=== PATIENT | male | born 1970 | race Caucasian/White ===

== ENCOUNTER 2016-07-27 21:23 | Emergency (ER) | payer SELFPAY ==
[2016-07-27 23:03] LABS: BASOPHIL % 0.6 % (0-2); PLATELET COUNT 216 x10^3mcL (130-400); RED CELL DISTRIBUTION WIDTH 12.8 % (11.5-14.5)
[2016-07-27 23:20] LABS: CALCIUM 9.9 mg/dL (8.5-10.1); CARBON DIOXIDE 31.1 mmol/L (21-32); CHLORIDE SERUM 98 mmol/L (98-107); GFR1 > 60 mL/min; GLUCOSE SERUM 370 mg/dL (74-106); POTASSIUM SERUM 4.6 mmol/L (3.5-5.1); SODIUM SERUM 138 mmol/L (136-145)
[2016-07-27 23:24] LABS: ALBUMIN 3.7 g/dL (3.4-5.0); ALKALINE PHOSPHATASE 116 U/L (46-116); ALT/SGPT 25 U/L (16-63); AMYLASE 52 U/L (25-115); AST/SGOT 19 U/L (15-37); BILIRUBIN TOTAL 0.5 mg/dL (0.20-1.00); LIPASE 192 IU/L (73-393); TOTAL PROTEIN, SERUM 7.2 g/dL (6.4-8.2)
[2016-07-28 00:07] VITALS: BP 136/88
== END 2016-07-28 01:30 | disposition home or self-care (01) ==
LOC: ED 21:23
PROVIDERS: Emergency Medicine
DX: R11.10 Vomiting, unspecified (principal); R10.13 Epigastric pain; E78.00 Pure hypercholesterolemia, unspecified; E11.65 Type 2 diabetes mellitus with hyperglycemia; Z79.4 Long term (current) use of insulin
CPT/HCPCS: 82962; G0480; J1815; J3411; J3475; J3490; J7030

== ENCOUNTER 2016-08-15 15:09 | Inpatient (IN) | payer MEDICAID ==
[~2016-08-15] VITALS: Ht 165.1 cm; Wt 71.7 kg
--- NOTE | 2016-08-15 15:22 | NUR ---
PT RETURNED TO LOBBY PENDING ROOM AVAILABILITY. VSS. RESPS E/U. NO S/S OF DISTRESS NOTED. EKG SHOWS NSR AND SIGNED BY
[2016-08-15 16:56] LABS: BASOPHIL % 0.3 % (0-2); PLATELET COUNT 247 x10^3mcL (130-400); RED CELL DISTRIBUTION WIDTH 12.7 % (11.5-14.5)
--- NOTE | 2016-08-15 17:02 | NUR ---
PT IS A 46 YEAR OLD MALE, PRESENTS TO ED WITH C/O MID CHEST PAIN X6 DAYS THAT HAS BEEN CONSTANT AND NON RADIATING WITH A SHARP LIKE QUALITY.PT ALSO REPORTS FRONTAL HEADACHE X3 DAYS THAT HAS BEEN INTERMITTENT WITH A PRESSURE LIKE QUALITY. PT DENIES ANY N/V/D/C. PT DENIES ANY FEVER. BREAHTING IS EVEN AND UNLABORED, NO S/S OF RESPRIATORY DISTRSS. SPEECH IS CLEAR AND APPROPRIATE. PT A/O X4. MSE PERFORMED BY DR. MORIN.
[2016-08-15 17:07] LABS: ALKALINE PHOSPHATASE 170 U/L (46-116); ALT/SGPT 16 U/L (16-63); AST/SGOT 10 U/L (15-37); BILIRUBIN TOTAL 0.2 mg/dL (0.20-1.00); CALCIUM 8.7 mg/dL (8.5-10.1); CARBON DIOXIDE 26.9 mmol/L (21-32); CHLORIDE SERUM 101 mmol/L (98-107); CREATININE SERUM 0.8 mg/dL (0.7-1.3); GFR1 > 60 mL/min; POTASSIUM SERUM 4.3 mmol/L (3.5-5.1); SODIUM SERUM 135 mmol/L (136-145)
[2016-08-15 17:08] LABS: ALBUMIN 2.9 g/dL (3.4-5.0)
[2016-08-15 17:10] LABS: GLUCOSE SERUM 520 mg/dL (74-106)
[2016-08-15] MEDS ORDERED: LANTUS SOLOS100 U/M1 SQ (19:03)
--- NOTE | 2016-08-15 19:14 | NUR ---
REPORT GIVEN TO ANJU Rocha RN, SHE WILL ASSUME CARE PRIMARYT RN.
--- NOTE | 2016-08-15 19:47 | NUR ---
REPORT CALLED TO DONNA ON [facility] FOR ADMISSION OF THIS PT.
--- NOTE | 2016-08-15 19:53 | NUR ---
RECEIVED PT FROM ED VIA [facility], CAME IN DUE TO SOB AND COUGH X6 DAYS. AAOX4. C/O 5/10 HEADACHE, DIZZINESS AND RUNNY NOSE. HAS NON-PRODUCTIVE COUGH, LUNG SOUNDS CTA. C/O 5/10 PRESSURE AND NON-RADIAITING MID CHEST PAIN, SINUS TACHYCARDIA ON THE MONITOR, HR AT 118, STATED PAIN IS WORSE WHEN DEEP BREATHING AND COUGHING. C/O RIGHT ARM NUMBNESS FROM ANTECUBITAL AREA TO HAND. C/O SWELLING ON THE RIGHT HAND, STATED YESTERDAY WAS WORSE. SIDE RAILS UPX2. CALL LIGHT ON REACH. ENDORSED TO PRIMARY NURSE DONNA FOR CONTINUITY OF CARE
[2016-08-15 20:06] VITALS: BP 141/74
[2016-08-15 20:13] VITALS: Ht 165.1 cm; Wt 71.7 kg
--- NOTE | 2016-08-15 20:30 | NUR ---
PT ALERT AND VERBAL IN FRISIAN WITH CLEAR SPEECH. DENIES ANY SOB. NO S/S OF RESPIRATORY DISTRESS NOTED. NOTED WITH MOIST NONPRODUCTIVE COUGH. LUNGS CLEAR BILATERALLY. ON TELE #2, ST. PT C/O PRESSURE LIKE PAIN TO CHEST AND HEADACHE. PRN NORCO 7.5 MG PO GIVEN. IV PATENT AND INTACT TO RIGHT AC. IV NS INFUSING WELL AT 50 ML/HR. NO S/S OF INFECTION NOTED. CALL LIGHT WITHIN REACH. WILL CONTINUE TO MONITOR.
[2016-08-15 21:23] LABS: CHOLESTEROL/HDL RATIO 4.6
[2016-08-15 21:30] LABS: T3 TOTAL 0.8 ng/mL
[2016-08-15 21:32] LABS: FREE T4 1.2 ng/dL (0.76-1.46); FREE THYROXINE INDEX 2.2 ug/dL (1.4-4.5); T4(THYROXINE) 6.2 ug/dL (4.7-13.3)
--- NOTE | 2016-08-15 21:55 | NUR ---
RECEIVED CALL FROM LAB, LACTIC ACID 3.3. DR. HUA UPDATED AND AWARE. AWAITING NEW ORDERS.
[2016-08-15 23:03] VITALS: BP 141/74
[2016-08-16] VITALS (7 sets, daily range): BP systolic 139–162; BP diastolic 78–96
[2016-08-16 00:21] LABS: microscopic required? YES; urine erythrocyte TRACE (NEGATIVE)
--- NOTE | 2016-08-16 00:31 | NUR ---
PT CURRENTLY RESTING IN BED WITH RELAXED FACIAL FEATURES. NO S/S OF RESPIRATORY DISTRESS NOTED. BREATHING EQUAL AND UNLABORED. IV PATENT AND INFUSING WELL. NO ADVERSE REACTIONS FROM IV ROCEPHIN. RECEIVED CALL FROM LAB, LACTIC ACID 3.6. DR. HUA UPDATED AND AWARE. AWAITING NEW ORDERS.
[2016-08-16 00:33] LABS: AMPHETAMINE QUAL UR NONE DETECTED (NEG <=1000)
--- NOTE | 2016-08-16 01:56 | NUR ---
PT'S INITIAL BP BEFORE IV NS 1000 ML BOLUS, 145/80, HR 88, MAP 101. AFTER IV NS 1000 ML BOLUS, NOTED PT HAVING COUGHING EPISODE. O2 SAT 90-96%. BP 162/96, HR 94, MAP 112. PT ALSO C/O SORE THROAT. PRN CEPACOL LOZENGE GIVEN. DR. HUA UPDATED REGARDING PT'S BP, HR, AND COUGHING EPISODE. AWAITING NEW ORDERS.
--- NOTE | 2016-08-16 02:16 | NUR ---
PRN ROBITUSSIN WITH CODEINE 10 ML LIQUID PO GIVEN. SWALLOWED WITHOUT DIFFICULTY. NO S/S OF RESPIRATORY DISTRESS NOTED AT THIS TIME. PT STATES LOZENGE HELPED WITH SORE THROAT AND FEELS BETTER. IV NS INFUSING WELL. CALL LIGHT WITHIN REACH. WILL CONTINUE TO MONITOR.
[2016-08-16 06:06] LABS: BASOPHIL % 0.1 % (0-2); PLATELET COUNT 236 x10^3mcL (130-400); RED CELL DISTRIBUTION WIDTH 12.4 % (11.5-14.5)
--- NOTE | 2016-08-16 06:07 | NUR ---
PT RESTING IN BED WITH EYES CLOSED. SLEPT WELL. EASILY AROUSED WHEN NAME CALLED. ALERT AND VERBAL WITH CLEAR SPEECH. REMAINS ON O2 1L VIA NC FOR COMFORT. DENIES ANY SOB AT THIS TIME. NO S/S OF RESPIRATORY DISTRESS NOTED. DENIES ANY PAIN AT THIS TIME. STATES THROAT FEELS DRY AND LITTLE SORE. PRN CEPACOL LOZENGE GIVEN. IV NS PATENT AND INFUSING WELL AT 150 ML/HR TO RIGHT FA. NO S/S OF DISTRESS NOTED. CALL LIGHT WITHIN REACH. WILL CONTINUE TO MONITOR.
[2016-08-16 06:52] LABS: CALCIUM 8.6 mg/dL (8.5-10.1); CARBON DIOXIDE 24.6 mmol/L (21-32); CHLORIDE SERUM 102 mmol/L (98-107); CREATININE SERUM 0.7 mg/dL (0.7-1.3); GFR1 > 60 mL/min; GLUCOSE SERUM 348 mg/dL (74-106); PHOSPHOROUS 3.4 mg/dL (2.5-4.9); POTASSIUM SERUM 4.2 mmol/L (3.5-5.1); SODIUM SERUM 137 mmol/L (136-145)
--- NOTE | 2016-08-16 07:20 | NUR ---
Received patient awake and alert in bed denies pain at this time, IV intact, tele in place # 2, POC explained. Cont to monitor.
--- NOTE | 2016-08-16 08:40 | NUR ---
PATIENT RESTING IN BED NO COMPLAINTS; DR. COMBS AND TEAM ROUND DISCUSS WITH PATIENT WILL NEED BLOOD SUGAR CONTROL AND ASTHMA IMPROVED
--- NOTE | 2016-08-16 09:31 | NUR ---
Patient resting in bed watching TV no distress noted, due meds given, Robitussin w/ Codeine 10ml given for cough; needs anticipated.
--- NOTE | 2016-08-16 11:31 | NUR ---
Patient resting in bed no complaints, accu-check done bs 264 give 6 units Humulin R SQ; diabetes teaching completed and handouts give to patient in Maltese. Needs anticipated.
--- NOTE | 2016-08-16 14:05 | NUR ---
PATIENT RESTING IN BED WATCHING TV, NO PAIN, DUE MEDS GIVEN. CEPACOL 1 TAB GIVEN PER REQUEST. ENCOURAGE PATIENT TO AMBULATE IN THE [place].
--- NOTE | 2016-08-16 16:42 | NUR ---
PATIENT REMAIN SIT IN THE CHAIR NO COMPLAINT, BS 342 GIVE 12 UNITS OF HUMULIN R SQ. GLUCOTROL 5MG PO. CONT TO MONITOR.
--- NOTE | 2016-08-16 17:59 | NUR ---
PATIENT REMAIN UP IN CHAIR EATING HIS DINNER, REQUEST FOR EXTRA FOODS, RE-INFORCED PATIENT ON DIABETIC DIET. NEEDS ANTICIPATED.
--- NOTE | 2016-08-16 19:54 | NUR ---
PT CURRENTLY RESTING IN BED, NO ACUTE DISTRESS. A/O X4. NO TELE, MED/SURG. DENIES CHEST PAIN. PULSES PALPABLE IN ALL EXTREMITIES, TRACE EDEMA NOTED TO RIGHT HAND. LUNG SOUNDS CTA BILATERALLY, NON-PRODUCTIVE COUGH NOTED, DENIES SOB. BOWEL SOUNDS ACTIVE, LAST BM 08/15/16. VOIDING WELL. AMBULATORY. SKIN INTACT. C/O HEADACHE, PAIN 06/05. WILL MEDICATE PER EMAR. IV PATENT AND INTACT. BED IN LOWEST POSITION, SIDE RAILS UP X2, SCDS IN PLACE, CALL LIGHT WITHIN REACH. WILL CONTINUE TO MONITOR.
--- NOTE | 2016-08-17 00:32 | NUR ---
PT CURRENTLY RESTING IN BED, NO ACUTE DISTRESS. WILL CONTINUE TO MONITOR.
[2016-08-17 05:44] VITALS: BP 118/82
--- NOTE | 2016-08-17 06:10 | NUR ---
PT SLEPT PERIODICALLY THROUGHOUT NIGHT, NO ACUTE DISTRESS. ALL NEEDS MET AND ATTENDED TO. NO SIGNIFICANT CHANGES. IV PATENT AND INTACT. MEDICATED PAIN PER EMAR. BED IN LOWEST POSITION, SIDE RAILS UP X2, SCDS IN PLACE, CALL LIGHT WITHIN REACH. WILL ENDORSE CARE TO ONCOMING NURSE.
[2016-08-17 06:38] LABS: BASOPHIL % 0.1 % (0-2); PLATELET COUNT 278 x10^3mcL (130-400); RED CELL DISTRIBUTION WIDTH 12.4 % (11.5-14.5)
--- NOTE | 2016-08-17 07:05 | NUR ---
BEDSIDE REPORT RECEIVED FROM [facility] SHIFT NURSE AT THIS TIME. PATIENT AWAKE, ALERT, NO SIGNS OF DISTRESS NOTED. ALL SAFETY MEASURES IN PLACE, WILL CONTINUE TO MONITOR.
[2016-08-17 07:24] LABS: CALCIUM 8.5 mg/dL (8.5-10.1); CARBON DIOXIDE 26.6 mmol/L (21-32); CHLORIDE SERUM 103 mmol/L (98-107); CREATININE SERUM 0.6 mg/dL (0.7-1.3); GFR1 > 60 mL/min; GLUCOSE SERUM 223 mg/dL (74-106); MAGNESIUM 2.2 mg/dL (1.8-2.4); PHOSPHOROUS 3.5 mg/dL (2.5-4.9); POTASSIUM SERUM 3.8 mmol/L (3.5-5.1); SODIUM SERUM 138 mmol/L (136-145)
[2016-08-17 07:40] VITALS: BP 123/78
--- NOTE | 2016-08-17 07:45 | NUR ---
PATIENT AWAKE, ALERT, NO SIGNS OF DISTRESS NOTED, AMBULATED IN HALLWAY X2 LAPS, GOOD POSTURE, GAIT STEADY AND BALANCED. DENIES CHEST PAIN, NO DIZZINESS. STATES HE IS HUNGRY, ON ROOM AIR SPO2 97%. IV TO RFA WNL, CALM AND COOPERATIVE WITH CARE, ALL SAFETY MEASURES IN PLACE, WILL CONTINUE TO [facility].
[2016-08-17 09:54] VITALS: BP 125/78
[2016-08-17] MEDS ORDERED: ZIT250 PO (09:57)
[2016-08-17] MEDS ORDERED: FLORASTOR1 CAP PO (09:59)
--- NOTE | 2016-08-17 10:00 | NUR ---
PATIENT AMBULATING IN HALLWAY WITH , GAIT STEADY, BALANCED, NO SIGNS OF DISTRESS NOTED. WILL CONTINUE TO MONITOR.
[2016-08-17] MEDS ORDERED: ZES20 PO (10:03)
[2016-08-17] MEDS ORDERED: LANTUS SOLOS100 U/M1 SQ (10:07)
[2016-08-17] MEDS ORDERED: GLUCOTROL10 MG PO (10:09)
[2016-08-17] MEDS ORDERED: PROVENTIL0.09 MG/A1 INH (10:10)
[2016-08-17] MEDS ORDERED: HUMULIN R100 U/1 M1 SC (10:56)
[2016-08-17] MEDS ORDERED: INSULIN SYRING1 EA10 MC (10:57)
--- NOTE | 2016-08-17 11:20 | NUR ---
Nutrition Note 201-B OCTAVIANO VASQUEZ 46 Y/O M Nutrition Consult: DM Teaching. Thank you for your consult. Dx: Severe Hyperglycemia, Status Asthmaticus PMHx: DM Ht: 65", 5' 5". Wt: 158 lb, 72 kg. BMI: 26.3 kg/m2 (Overweight) Labs: BG 223 H, Cr 0.6 L, WBC 12.6 H, H/H 12.7/38 L; (08/15) ALB 2.9 L, A1C 11.4 H, Lactic Acid 3.6 H Current Diet Order: CCHO-60 gm PO Intakes: (08/16) B: 80%; (08/17) B: 100% Skin: Intact. Gulshan 22. No pressure injuries noted. Pt found with SOB secondary to possible community acquired pneumonia masked by dehydration vs COPD exacerbation, DMOOC with HCS with A1C 11.[address] notes[address] RD met up with pt at bedside. Family at bedside. Pt appears to be in good spirits, reported good appetite, no N/V/D/C, and no abd pain. RD provided nutrition education on DM, discussed portion control, carb counting, exercise, and food options. Handouts and DM class flyer provided. Pt receptive and acknowledged/verbalizes understanding of diet. Review indicates pt is a low risk priority at this time. RD to follow up per nutrition care policy and standards. Please contact RD should nutrition concerns arise earlier than expected follow up date. Pt will be F/U as LOW risk (08/24).
[2016-08-17 11:57] VITALS: BP 125/78
--- NOTE | 2016-08-17 12:18 | NUR ---
PATIENT AWAKE, ALERT, NO SIGNS OF DISTRESS NOTED. RN TONY AT BEDSIDE TO GIVE PATIENT CONTOUR GLUCOMETER. WILL NOTIFY MD OF PRESCRIPTION FOR STRIPS.
[2016-08-17] MEDS ORDERED: LANCETS1 EAC3 MC (12:23)
[2016-08-17] MEDS ORDERED: BLOOD GLUCOSE1 EACH MC (12:23)
--- NOTE | 2016-08-17 12:43 | NUR ---
DR BENITEZ IN TO PROVIDE DISCHARGE EDUCATION AT THIS TIME. AT BEDSIDE, ALL QUESTIONS AND CONCERNS ADDRESSED. WILL FACILITATE DISCHARGE, PATIENT EATING LUNCH.
--- NOTE | 2016-08-17 13:11 | NUR ---
DISCHARGE TEACHING PROVIDED AT THIS TIME. AT BEDSIDE, ESCORTED BY NURSE AID RAFAELA DOWNSTAIRS. ATTENDING ANESTHESIOLOGIST MADE AWARE.
== END 2016-08-17 13:10 | disposition home or self-care (01) | DRG 140 ==
LOC: ED 15:09 → MU 19:13 → DU 19:13 → MU 08-16 16:56
PROVIDERS: Emergency Medicine; ADMIT Family Medicine
DX: J44.1 Chronic obstructive pulmonary disease with (acute) exacerbation (principal); J18.9 Pneumonia, unspecified organism; D68.69 Other thrombophilia; E11.51 Type 2 diabetes mellitus with diabetic peripheral angiopathy without gangrene; E44.0 Moderate protein-calorie malnutrition; E11.65 Type 2 diabetes mellitus with hyperglycemia; E87.1 Hypo-osmolality and hyponatremia; I10 Essential (primary) hypertension; F12.10 Cannabis abuse, uncomplicated; Z79.4 Long term (current) use of insulin; Z68.29 Body mass index [BMI] 29.0-29.9, adult; F17.210 Nicotine dependence, cigarettes, uncomplicated
CPT/HCPCS: 36600; 80307; 82962; 83880; 84439; G0480; J0696; J1815; J2920; J2930; J7030; J7040; J7613; J7620; J7633; J7644; Q0092

== ENCOUNTER 2018-07-06 00:20 | Inpatient (IN) | payer SELFPAY ==
[~2018-07-06] VITALS: Ht 165.1 cm; Wt 62.1 kg
[~2018-07-06 00:20] MED LIST: BLOOD GLUCOSE1 EACH MC; FLORASTOR1 CAP PO; GLUCOTROL10 MG PO; HUMULIN R100 U/1 M1 SC; INSULIN SYRING1 EA10 MC; LANCETS1 EAC3 MC; LANTUS SOLOS100 U/M1 SQ; PROVENTIL0.09 MG/A1 INH; ZES20 PO; ZIT250 PO
[2018-07-06 00:28] VITALS: Ht 165.1 cm; Wt 62.1 kg
[2018-07-06 01:39] LABS: BASOPHIL % 0.2 % (0-2); PLATELET COUNT 200 x10^3mcL (130-400)
[2018-07-06 02:32] LABS: ALBUMIN 3.4 g/dL (3.4-5.0); ALKALINE PHOSPHATASE 213 U/L (46-116); ALT/SGPT 49 U/L (16-63); AST/SGOT 37 U/L (15-37); BILIRUBIN TOTAL 0.37 mg/dL (0.20-1.00); CALCIUM 8.5 mg/dL (8.5-10.1); CARBON DIOXIDE 23.2 mmol/L (21-32); CHLORIDE SERUM 96 mmol/L (98-107); FREE T4 0.82 ng/dL (0.76-1.46); GFR1 > 60 mL/min; LIPASE 729 IU/L (73-393); POTASSIUM SERUM 4.2 mmol/L (3.5-5.1); SODIUM SERUM 129 mmol/L (136-145); TOTAL PROTEIN, SERUM 7.1 g/dL (6.4-8.2)
[2018-07-06 02:42] LABS: GLUCOSE SERUM 655 mg/dL (74-106)
[2018-07-06 03:21] LABS: OSMOLALITY SERUM 300 mOsm/kg (278-298)
[2018-07-06 03:29] LABS: AMPHETAMINE QUAL UR NONE DETECTED (See below)
[2018-07-06 03:36] LABS: UA SPECIFIC GRAVITY <=1.005 (1.005-1.035); microscopic required? YES; urine erythrocyte TRACE (NEGATIVE)
[2018-07-06 06:43] LABS: CHOLESTEROL/HDL RATIO 3.9; MAGNESIUM 2.3 mg/dL (1.8-2.4); PHOSPHOROUS 3.2 mg/dL (2.5-4.9)
[2018-07-06 08:16] VITALS: BP 127/87
[2018-07-06 17:17] VITALS: BP 115/76
[2018-07-06 19:15] VITALS: BP 129/77
[2018-07-07 05:29] VITALS: BP 109/76
[2018-07-07 06:50] LABS: BASOPHIL % 0.4 % (0-2); PLATELET COUNT 173 x10^3mcL (130-400)
[2018-07-07 07:09] LABS: CALCIUM 7.9 mg/dL (8.5-10.1); CARBON DIOXIDE 26.8 mmol/L (21-32); CHLORIDE SERUM 101 mmol/L (98-107); CREATININE SERUM 0.6 mg/dL (0.7-1.3); GFR1 > 60 mL/min; GLUCOSE SERUM 173 mg/dL (74-106); LIPASE 364 IU/L (73-393); POTASSIUM SERUM 3.5 mmol/L (3.5-5.1); SODIUM SERUM 135 mmol/L (136-145)
[2018-07-07 08:48] VITALS: BP 122/80
[2018-07-07 13:23] VITALS: BP 122/80
[2018-07-07 16:24] VITALS: BP 118/73
== END 2018-07-07 18:24 | disposition home or self-care (01) | DRG 438 ==
LOC: ED 00:20 → MU 05:08 → DU 08:13 → MU 07-07 18:24
PROVIDERS: Emergency Medicine; ADMIT Internal Medicine
DX: K85.90 Acute pancreatitis without necrosis or infection, unspecified (principal); N17.0 Acute kidney failure with tubular necrosis; E87.2 Acidosis; E44.1 Mild protein-calorie malnutrition; E11.65 Type 2 diabetes mellitus with hyperglycemia; E78.00 Pure hypercholesterolemia, unspecified; E78.5 Hyperlipidemia, unspecified; Z79.899 Other long term (current) drug therapy; Z79.4 Long term (current) use of insulin; F17.210 Nicotine dependence, cigarettes, uncomplicated; Z91.19 Patient's noncompliance with other medical treatment and regimen; Z68.24 Body mass index [BMI] 24.0-24.9, adult
CPT/HCPCS: 82962; 83880; 84439; 87804; 90658; G0480; J0133; J0696; J1815; J1885; J2060; J2270; J2405; J3370; Q0092

== ENCOUNTER 2018-07-28 23:01 | Inpatient (IN) | payer SELFPAY ==
[~2018-07-28] VITALS: Ht 165.1 cm; Wt 65.3 kg
[2018-07-28 23:13] VITALS: Ht 165.1 cm; Wt 65.3 kg
--- NOTE | 2018-07-29 00:01 | NUR ---
PT CAME TO ED CO WOUND INFECTION TO RIGHT 2ND TOE. PT STS HE STUBBED HIS TOE ON THE WEED EATER. PT STS THE TOES HAS BECOME INCREASINGLY WORSE OVER THE LAST 15 DAYS. UPON ASSESSMENT TOE IS BLACK IN COLOR ALL THE WAY AROUND, ERYTHEMA PRESENT GOING DOWN FOOT, SLIGHT SWELLING TO THE RIGHT FOOT. PT STS HE HAS THROBBING PAIN RATING IT 10/10 NON RADIATING. PT STS HE IS NOT COMPLIANT W/DM MEDICATION. NO S/S OF DISTRESS. RESP E/U. COMFORT MEASURES IMPLEMENTED. AT BEDSIDE. AWAITING MSE. WILL CONTINUE TO MONITOR.
--- NOTE | 2018-07-29 00:07 | NUR ---
XRAY AT BEDSIDE
[2018-07-29 00:27] LABS: BASOPHIL % 0.5 % (0-2); PLATELET COUNT 343 x10^3mcL (130-400); RED CELL DISTRIBUTION WIDTH 12.6 % (11.5-14.5)
--- NOTE | 2018-07-29 00:32 | NUR ---
PT MEDICATED PER MD ORDERS WITH MORPHINE 4 MG IVP, PRE BP 126/76 HR 95.
--- NOTE | 2018-07-29 00:38 | NUR ---
EDUCATED PT ON NEED TO OBTAIN URINE SAMPLE. PT STATES UNABLE TO URINATE AT THIS TIME BUT VERBALIZED UNDERSTANDING OF NEED TO OBTAIN SAMPLE.
[2018-07-29 00:48] LABS: ALKALINE PHOSPHATASE 128 U/L (46-116); ALT/SGPT 19 U/L (16-63); AST/SGOT 10 U/L (15-37); BILIRUBIN TOTAL 0.26 mg/dL (0.20-1.00); CALCIUM 9.4 mg/dL (8.5-10.1); CARBON DIOXIDE 33.6 mmol/L (21-32); CHLORIDE SERUM 95 mmol/L (98-107); GFR1 > 60 mL/min; POTASSIUM SERUM 4.3 mmol/L (3.5-5.1); SODIUM SERUM 134 mmol/L (136-145); TOTAL PROTEIN, SERUM 7.1 g/dL (6.4-8.2)
[2018-07-29 00:53] LABS: GLUCOSE SERUM 474 mg/dL (74-106)
--- NOTE | 2018-07-29 01:10 | NUR ---
LAB AT BEDSIDE FOR BLOOD DRAW
--- NOTE | 2018-07-29 01:17 | NUR ---
EMT JOAQUIN AT BEDSIDE FOR WOUND CARE.
--- NOTE | 2018-07-29 01:25 | NUR ---
PT STATED "I FEEL LIKE I HAVE TO VOMIT". PT GIVEN EMESIS BAG, PT VOMITED ONCE SMALL AMOUNT BUT STILL C/O NAUSEA. DR RUIZ MADE AWARE AND ORDERED 4 MG IVP OF ZOFRAN. WILL CONTINUE TO MONITOR.
--- NOTE | 2018-07-29 01:35 | NUR ---
PT MEDICATED PER MD ORDERS.
--- NOTE | 2018-07-29 02:07 | NUR ---
PT REQUESTING FOOD. DR RUIZ STATED OKAY TO PROVIDE PT WITH FOOD. PT PROVIDED WITH SANDWHICH AND WARM BLANKET FOR COMFORT.
--- NOTE | 2018-07-29 03:20 | NUR ---
PT VISABLE UPSET AND RESTLESS IN BED, PT C/O PAIN AND BEING "REALLY COLD". PT PROVIDED WITH WARM BLANKET FOR COMFORT. DR RUIZ MADE AWARE OF PTS C/0 PAIN. AWAITING ORDERS AT THIS TIME, WILL CONTINUE TO MONITOR.
--- NOTE | 2018-07-29 03:25 | NUR ---
JOAQUIN HAYES REMOVED BANDAGE FROM R TOES AT THIS TIME TO ASSIST IN PAIN MANAGEMENT AT THIS TIME, DR RUIZ MADE AWARE. WILL CONTINUE TO MONITOR.
--- NOTE | 2018-07-29 03:35 | NUR ---
PT MEDICATED PER MD ORDERS. XRAY AT BEDSIDE. WILL CONTINUE TO MONITOR.
--- NOTE | 2018-07-29 03:50 | NUR ---
PT STILL UNABLE TO PROVIDE URINE SAMPLE AT THIS TIME. PER DR JOSEPH BOYLE TO SEND PT UP TO [facility] WITHOUT OBTAINING URINE SAMPLE.
--- NOTE | 2018-07-29 03:53 | NUR ---
REPORT GIVEN TO TANIA COTTON EXT [id number]
--- NOTE | 2018-07-29 04:00 | NUR ---
PT TRANSFERED TO [facility] BED 204B IN NAD AT THIS TIME ACCOMPANIED BY EMT JOAQUIN. BREATHING EVEN AND UNLABORED. PT A&0X4, SPEAKING FULL CLEAR SENTENCES. PT VERBALIZED UNDERSTANDING OF PLAN OF CARE. PT TRANSFERED VIA GURNEY. FAMILY MEMBER ACCOMPANIED PT IN TRANSFER.
--- NOTE | 2018-07-29 04:02 | NUR ---
PATIENT ARRIVED ONTO THE UNIT VIA GUERNEY ACCOMPANIED BY ED STAFF AND SIGNIFICANT OTHER. BELONGINGS AT BEDSIDE. CC: RIGHT SECOND TOE FOOT INFECTION WORSENING X2 WEEKS. DX WITH DIABETIC FOOT ULCER AND OSTEOMYELITIS. MORPHINE GIVEN IN THE ED. PATIENT REPORTS PAIN TO HIS RIGHT ROOT IS 5/10 AND TOLERABLE AT THIS TIME. 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 PATIENT DID NOT WANT IT WRAPPED DUE TO THE PAIN. SURROUNDING ERYTHEMA NOTED TO THE RIGTH FOOT WOUND CX COLLECTED. FOUL ODOR NOTED. A/OX4. BREATHING EVEN ON ROOM AIR. NO SOB OR RESP DISTRESS NOTED. MED SURG PATIENT. DENIES CHEST PAIN. IV TO THE LFA, 20G INFUSING WELL. PATENT AND INTACT. NO REDNESS OR SWELLING NOTED. C/O NAUSEA. ED REPORTED PATIENT HAD EMESIS X1 AND ZOFRAN WAS GIVEN. EMESIS BAG PROVIDED TO THE PATIENT. ORIENTED PATIENT TO THE ROOM AND CALL LIGHT. INSTRUCTED PATIENT TO CALL FOR ASSISTANCE. ABLE TO MAKE NEEDS KNOWN. COMFORT AND SAFETY MEASURES MAINTAINED. SIDE RAILS UP X2. BED IS LOCKED AND IN THE LOWEST POSITION. PATIENT WAS TEARFUL. WHEN ASKED WHAT WAS WRONG, PATIENT STOPPED CRYING AND SAID "NOTHING IS WRONG". WILL CONTINUE TO MONITOR.
[2018-07-29 04:30] LABS: MAGNESIUM 2.1 mg/dL (1.8-2.4); PHOSPHOROUS 4.3 mg/dL (2.5-4.9)
[2018-07-29 04:33] LABS: CHOLESTEROL/HDL RATIO 3.7
[2018-07-29 04:36] LABS: T3 TOTAL 0.84 ng/mL
[2018-07-29 04:48] VITALS: BP 139/92
[2018-07-29 04:49] LABS: FREE T4 1.1 ng/dL (0.76-1.46); FREE THYROXINE INDEX 2.9 ug/dL (1.4-4.5); T4(THYROXINE) 7.7 ug/dL (4.7-13.3)
--- NOTE | 2018-07-29 06:45 | NUR ---
NO SIGNIFICANT CHANGES NOTED. WILL ENDORSE CARE TO DAY SHIFT RN
[2018-07-29 07:09] VITALS: BP 140/87
--- NOTE | 2018-07-29 07:39 | NUR ---
REPORT RECEIVED. PATIENT SEEN ASLEEP WITH RR- 16 UNLABORED. NOT IN ANY DISTRESS. IVF NS AT 100CC/HR TO LFA INFUSING VIA PUMP. SITE NO SWELLING OR ERYTHEMA. NPO FOR 1330 PLANNED SURGERTY. REPORT VIVEN TO YURY MONET IN OR. VISITOR ASLEEP AT BEDSIDE. CALL CEBALLOS WITHIN REACH. BED LOW AND LOCKED.
--- NOTE | 2018-07-29 11:42 | NUR ---
1. Progress to CCHO diet when medically appropriate. 2.Recommend Kerwin BID to support wound healing. 3.Diabetes Diet education provided
--- NOTE | 2018-07-29 11:42 | NUR ---
Initial Nutrition Assessment- /B OCTAVIANO VASQUEZ HR Dx: Diabetic foot infection, osteomyelitis PMHx: DM, HLD PSHx: right eyelid benign tumor resection Labs: (07/29) NA 134L, BG 474H, A1C 11.4 Meds: D50, Humulin, lactinex, NS, Zofran Diet: NPO (podiatry evaluation) PO Intake: Pt is NPO Ht: 165.1cm (65") Wt: 65.3 kg (144#) BMI: 24 kg/m2 IBW: 136# (62 kg) %IBW: 106 UBW: Pt does not remember Age: 48/M Food Allergies: NKFA Skin: R great toe dryness and L Foot Gulshan: 21 Edema: none GI: last BM: 07/29 (per pt) Per H&P, Pt is a 48 year old male with PMH of DM and HLD presents with right 2nd toe pain for 15 days. Patient states it started after a weed erin hit his toe. Patient reports not taking care of it and it got worst. He describes the pain as pressure, constant and non-radiating. He rates the pain as 9/10. Patient reports yellow drainage coming from his toe. He states he has been taking penicillin from [place] for a week. RDN visit (07/29): pt was awake with a family member at bedside. Pt said that he does not have any N/V D/C at this time, has 'good' appetite. FNS received wound care consult for "RT 2nd toe diabetic foot infection" on 07/29/18. Paged Dr. Hamm and discussed recommendations. Problem with: N: no V: no D: no C: no Problems with: Chewing/Swallowing: no Current appetite: good Recent wt change: unable to access as pt does not recall past weight Vitamin/Supplement use: none Special diet at home: Regular Physical activity: unable to access Education: Diabetes diet education was provided using [facility] handout on 'type 2 Diabetes Nutrition Therapy'. Topics discussed included label reading, portion control and types of carbohydrates. Pt verbalized understanding and did not have any questions at this time. Estimated Nutritional Needs Based on actual body weight 65 kg Energy: 2741-1918 kcal/d (30-35 kcal/kg-wound) Protein: 65-78 g/d (1.0-1.2 g/kg)- wound and preservation of lean body mass Fluid: 5312-3793 ml/d (1 ml/kcal-fluid balance) or per doctor Nutrition Diagnosis 1. Increased nutrient needs related to metabolic demands as evidenced by infected wound. 2. Altered nutrition related lab values related to endocrine dysfunction as evidenced by BG 474, A1C 11.4 Intervention 1. Progress to CCHO diet when medically appropriate. 2.Recommend Kerwin BID to support wound healing. 3.Diabetes Diet education provided Monitor/Evaluate Goal: PO intake at least 75% of estimated needs Monitor: PO intake, Labs, GI function F/U in 3-5 days as moderate risk 08/01-08/03
--- NOTE | 2018-07-29 11:58 | NUR ---
SPOKE WITH TOYN RN AWAKE OVERNIGHT MONITOR. PER TONY PT NEEDS GLUCOMETER, LANCETS, AND TEST STRIPS ON DISCHARGE.
--- NOTE | 2018-07-29 13:00 | NUR ---
SURGERY POSTPONED FOR WEDNESDAY. DIET RESUMED. WELL TOLERATED. NOT IN ANY DISTRESS. CALL LIGHT WITHIN REACH. BED LOW AND LOCKED.
--- NOTE | 2018-07-29 13:38 | NUR ---
Discount pharmacy card and list to low cost medical clinics given to patient by Najma.
[2018-07-29 15:51] VITALS: BP 139/80
--- NOTE | 2018-07-29 16:11 | NUR ---
PT. SEEN BY DR. MITTAL THIS MORNING AND PLAN FOR AMPUTATION PROCEDURE ON 08/01/2018. WILL KEEP RIGHT 2ND TOE WOUND DRY AND CLEAN.
[2018-07-29 18:06] LABS: microscopic required? NO
[2018-07-29 18:46] LABS: urine erythrocyte NEGATIVE (NEGATIVE)
--- NOTE | 2018-07-29 19:09 | NUR ---
BEDSIDE REPORT GIVEN TO YURY CULP. PATIENT RESTING IN BED. NOT IN ANY DISTRESS. CALL LIGHT WITHIN REACH. BED LOW AND LOCKED.
--- NOTE | 2018-07-29 19:10 | NUR ---
RECEIVED PT IN COMFORTABLY RESTING WITH FAMILY AT BEDSIDE.AAOX4,TURKISH SPEAKING. NO ACUTE RESPIRATORY DISTRESS NOTED. DENIES ANY PAIN AT THIS TIME.IV SITE PATENT AND INTACT. WOUND TO RIGHT FT TO 2ND TOE. LEFT TOE/ LEFT FT SCAB, WINDOW DRAPER.BED IN LOWEST POSITION,CALL LIGHT WITHIN REACH. WILL CONTINUE TO MONITOR.
[2018-07-29 21:40] VITALS: BP 137/85
--- NOTE | 2018-07-30 05:12 | NUR ---
PT REFUSED LAB . DR PHAN MADE AWARE.
--- NOTE | 2018-07-30 05:18 | NUR ---
PT AWAKE,ALERT. NO SOB NOTED. C/O ANDREWS BUT DOESN'T WANT TO TAKE MEDICINE.REFUSED LAB DRAW ALSO.BED IN LOWEST POSITION,CALL LIGHT WITHIN REACH.WILL CONTINUE TO MONITOR.
--- NOTE | 2018-07-30 05:53 | NUR ---
PT REFUSED INSULIN.DR PHAN MADE AWARE.
--- NOTE | 2018-07-30 06:44 | NUR ---
PT REFUSED GLUCOTROL AND V/S. DR PHAN MADE AWARE.
--- NOTE | 2018-07-30 07:33 | NUR ---
CARE ENDORSED TO DAY NURSE
--- NOTE | 2018-07-30 08:00 | NUR ---
PT IS OX4; ROMANSH SPEAING; FLIGHT CREW TIME CLERK REQUIRED FOR ASSESSMENT; NO SOB AT RM AIR; DENIES PAIN THAT REQUIRE PAIN MED THIS TIME; IVF NSS AT 100 ML/HR INFUSING; LFA SITE PATENT AND WITHOUT INFILTRATION; RT FT IS COVERED WITH KERLIX AND SHARMAINE BANDAGE; FOUL SMELL NOTED IN THE ROOM DESPITE DSG INTACT.
--- NOTE | 2018-07-30 08:40 | NUR ---
DR. MITTAL OBTAINED CONSENT FOR I&D OF RT FOOT FROM PT WITH HELP OF TEL RN TRANSPORT.
[2018-07-30 09:00] VITALS: BP 105/81
--- NOTE | 2018-07-30 09:00 | NUR ---
PHOTO OF THE RT FOOT TAKEN AFTER I&D AT THE BEDSIDE; PT REPORTS DULL HEADACHE AND WAS GIVEN TYLENOL PO PRN ORDERED.
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
--- NOTE | 2018-07-30 14:00 | NUR ---
CALLED LAB FOR PENDING TESTS FROM 0500 THAT PT REFUSED FOR BLOOD DRAW; PT IS COOPERATIVE AND AGREAABLE TO BLD DRAW.
[2018-07-30 14:21] LABS: BASOPHIL % 0.6 % (0-2); PLATELET COUNT 312 x10^3mcL (130-400); RED CELL DISTRIBUTION WIDTH 12.2 % (11.5-14.5)
[2018-07-30 14:45] LABS: CALCIUM 8.3 mg/dL (8.5-10.1); CARBON DIOXIDE 31.5 mmol/L (21-32); CHLORIDE SERUM 97 mmol/L (98-107); CREATININE SERUM 0.9 mg/dL (0.7-1.3); GFR1 > 60 mL/min; GLUCOSE SERUM 219 mg/dL (74-106); MAGNESIUM 1.9 mg/dL (1.8-2.4); PHOSPHOROUS 3.4 mg/dL (2.5-4.9); POTASSIUM SERUM 3.8 mmol/L (3.5-5.1); SODIUM SERUM 134 mmol/L (136-145)
--- NOTE | 2018-07-30 15:00 | NUR ---
VANCO TROUGH IS 18.3 AND PHARMACY IS MADE AWARE.
[2018-07-30 17:38] VITALS: BP 136/94
--- NOTE | 2018-07-30 19:01 | NUR ---
PT HAS BEEN CALM AND COOPERATIVE FOR THE REST OF THE SHIFT. NO NEW COMPLAINTS OR CHANGES IN STATUS. SITTER IN THE ROOM. WILL CONTINUE TO MONITOR STATUS.
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
[2018-07-30 20:45] VITALS: BP 138/67
[2018-07-31 05:42] VITALS: BP 138/84
--- NOTE | 2018-07-31 06:02 | NUR ---
NO SIGNIFICANT CHANGES TO REPORT, PT COMPLIED WITH NURSING CARE THROUGHOUT MOST OF THE SHIFT. SITTER REMAINS AT BEDSIDE TO ENSURE SAFETY. NO ACUTE DISTRESS OBSERVED AT THIS TIME, PT LAYING IN BED, BREATHING EVEN AND UNLABORED, AROUSABLE TO VERBAL STIMULI. COMFORT AND SAFETY MEASURES MAINTAINED. ALL NEEDS ASSESSED AND ATTENDED TO. CALL LIGHT WITHIN REACH. WILL CONTINUE TO MONITOR AND ENDORSE CARE TO DAY SHIFT NURSE
[2018-07-31 06:34] LABS: CALCIUM 8.8 mg/dL (8.5-10.1); CARBON DIOXIDE 32.1 mmol/L (21-32); CHLORIDE SERUM 99 mmol/L (98-107); CREATININE SERUM 0.8 mg/dL (0.7-1.3); GFR1 > 60 mL/min; GLUCOSE SERUM 223 mg/dL (74-106); MAGNESIUM 2.2 mg/dL (1.8-2.4); PHOSPHOROUS 3.4 mg/dL (2.5-4.9); POTASSIUM SERUM 4.2 mmol/L (3.5-5.1); SODIUM SERUM 136 mmol/L (136-145)
[2018-07-31 07:27] LABS: BASOPHIL % 0.2 % (0-2); PLATELET COUNT 312 x10^3mcL (130-400); RED CELL DISTRIBUTION WIDTH 12.4 % (11.5-14.5)
--- NOTE | 2018-07-31 07:40 | NUR ---
RECEIVED PT SITTING UP IN BED. NO ACUTE DISTRESS. DRESSING TO R FOOT C/D/I, ELEVATED WITH PILLOW. NO C/O PAIN. IVF INFUSING, NO REDNESS OR SWELLING NOTED. 1:1 SITTER AT BEDSIDE. PT REPORTS SUICIDAL IDEATION WITH PLAN TO SHOOT HIMSELF WITH A PISTOL WHEN HE GETS HOME. SAFETY PRECAUTIONS IN PLACE. BED IN LOW POSITION, CALL LIGHT WITHIN REACH. WILL CONTINUE TO MONITOR.
[2018-07-31 08:21] VITALS: BP 125/85
--- NOTE | 2018-07-31 11:31 | NUR ---
DRESSING TO RIGHT FOOT CHANGED BY IT DESKTOP SUPPORT TECHNICIAN DR. MITTAL.
--- NOTE | 2018-07-31 14:41 | NUR ---
PT RESTING IN BED. NO ACUTE DISTRESS. DENIES PAIN AT THIS TIME. 1:1 SITTER AT BEDSIDE. VISITORS AT BEDSIDE. IVF INFUSING, NO REDNESS OR SWELLING. CALL LIGHT WITHIN REACH. WILL CONTINUE TO MONITOR.
[2018-07-31 17:26] VITALS: BP 108/65
--- NOTE | 2018-07-31 18:20 | NUR ---
PT IN NO ACUTE DISTRESS. RESTING IN BED. AAOX4. BREATHING EVEN AND UNLABORED ON RA. RIGHT FOOT DRESSING C/D/I, ELEVATED WITH PILLOW. DENIES PAIN. IVF INFUSING, NO REDNESS OR SWELLING. PT INFORMED OF NPO STATUS FOR PROCEDURE TOMORROW IN AM. BED IN LOW POSITION, CALL LIGHT WITHIN REACH. WILL ENDORSE TO ONCOMING SHIFT.
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
[2018-07-31 20:27] VITALS: BP 132/88
[2018-08-01 05:46] VITALS: BP 126/89
--- NOTE | 2018-08-01 05:55 | NUR ---
DR. WILLIS AT BEDSIDE TO SEE PT
--- NOTE | 2018-08-01 06:18 | NUR ---
PT NPO SINCE 2329 LAST NIGHT. AWARE OF SURGERY SCHEDULED TODAY. CHG WIPES DONE. CONSENT TO SURGERY SIGNED BY PT AND IN CHART. CHECKLIST DONE AND IN CHART. NO SIGNIFICANT CHANGES TO REPORT, PT COMPLIED WITH NURSING CARE THROUGHOUT THE SHIFT WITH NO ACUTE EVENTS OVERNIGHT. NO ACUTE DISTRESS NOTED AT THIS TIME, PT LAYING IN BED, BREATHING EVEN AND UNLABORED, AROUSABLE TO VERBAL STIMULI. SITTER REMAINS AT BEDSIDE TO ENSURE SAFETY. COMFORT AND SAFETY MEASURES MAINTAINED. ALL NEEDS ASSESSED AND ATTENDED TO. CALL LIGHT WITHIN REACH. WILL CONTINUE TO MONITOR AND ENDORSE CARE TO DAY SHIFT NURSE
[2018-08-01 06:42] LABS: CALCIUM 8.6 mg/dL (8.5-10.1); CARBON DIOXIDE 30.4 mmol/L (21-32); CHLORIDE SERUM 100 mmol/L (98-107); CREATININE SERUM 0.9 mg/dL (0.7-1.3); GFR1 > 60 mL/min; GLUCOSE SERUM 310 mg/dL (74-106); MAGNESIUM 2.1 mg/dL (1.8-2.4); PHOSPHOROUS 3.2 mg/dL (2.5-4.9); POTASSIUM SERUM 4.2 mmol/L (3.5-5.1); SODIUM SERUM 136 mmol/L (136-145)
--- NOTE | 2018-08-01 06:46 | NUR ---
REPORT GIVEN TO YURY LI FROM .. ALL QUESTIONS AND CONCERNS ADDRESSED.
[2018-08-01 06:50] LABS: BASOPHIL % 0.4 % (0-2); PLATELET COUNT 331 x10^3mcL (130-400); RED CELL DISTRIBUTION WIDTH 12.6 % (11.5-14.5)
--- NOTE | 2018-08-01 06:50 | NUR ---
PT TAKEN DOWN TO O.R. AT THIS TIME. IV TO LFA S/L. NO ACUTE DISTRESS OBSERVED.
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
[2018-08-01 09:16] VITALS: BP 114/71
--- NOTE | 2018-08-01 09:40 | NUR ---
PATIENT APPEARED AGITATED AND WANTED TO LEAVE, PATIENT PULLED OUT IV TO LFA. PATIENT WAS ABLE TO CALM DOWN ONCE HE WAS GIVEN FOOD, PATIENT ALLOWED US TO PLACE A NEW IV TO RFA 20G. CALL LIGHT WITHIN REACH, BED IN LOW POSITION, WILL CONTINUE TO MONITOR PATIENT. SITTER AT BEDSIDE FOR SAFETY PRECAUTION.
--- NOTE | 2018-08-01 12:40 | NUR ---
DR LAGUERRE AWARE PATIENT WANTED TO LEAVE AMA, DR LAGUERRE SPOKE WITH THE PATIENT ABOUT PLAN OF CARE, PATIENT AGREED TO STAYING. WILL CONTINUE TO MONITOR THE PATIENT.
[2018-08-01 17:35] VITALS: BP 126/75
--- NOTE | 2018-08-01 18:30 | NUR ---
PATIENT WAS C/O MODERATE PAIN TO RLE, HELPED REPOSITION PATIENT, AND MEDICATED PATIENT WITH NORCO PER PROTOCOL(SEE EMAR). CALL LIGHT WITHIN REACH, BED IN LOW POSITION, WILL CONTINUE TO MONITOR.
--- NOTE | 2018-08-01 19:05 | NUR ---
NO ACUTES CHANGES THROUGH OUT SHIFT, PATIENT IS STABLE. PATIENT DENIES PAIN AT THIS TIME. DRESSING TO RLE CDI. IV TO RFA CDI, NO S/S OF INFILTRATION. CALL LIGHT WITHIN REACH, BED IN LOW POSITION. ENDORSED REPORT TO JOSEFINA.
--- NOTE | 2018-08-01 19:25 | NUR ---
RECEIVED PT RESTING IN BED, FAMILY AT BEDSIDE. AOX4, DENIES ANDREWS/DIZZINESS. MEDSURG PT, DENIES CP. PT S/P RT FOOT PARTIAL 2ND RAY AMPUTATION, DSG IN PLACE CDI. PT DENIES PAIN AT THIS TIME. PT HAS 1+ EDEMA RLE, SCDS IN PLACE. PT CTA ON RA, DENIES SOB. ABD SOFT, ROUND, DENIES ABD PAIN. PT DENIES N/V/D. PT VOIDS BRP, DENIES DYSURIA. GENERALIZED WEAKNESS ON NWB RT FOOT. WILL REQUEST CRUTCH FOR SAFE GAIT TRAINING. PT HAS DRY FLAKY SKIN NOTED TO LEFT LATERAL ASPECT OF THE LEFT FOOT. 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 DENIES PAIN. PT REPORTS PAIN UNDER CONTROL AT THIS TIME. IV SITE TO RFA, NS @ 100ML/HR. NO REDNESS, SWELLING OR PAIN NOTED. PT ON ANTIBIOTICS. ALL COMFORT AND SAFETY MEASURES PROVIDED FOR, CALL LIGHT WITHIN REACH, BED IN LOWEST POSITION, WILL CONTINUE TO MONITOR.
[2018-08-01 20:56] VITALS: BP 132/82
--- NOTE | 2018-08-02 00:54 | NUR ---
MEDICATED PT WITH ATIVAN PO FOR ANXIETY. PT REPORTS FEELING SCARED BECAUSE HE STATES "FEELING EVIL SPIRITS" IN THE ROOM. EDUCATED PT HE IS SAFE AND HIS IS AT BEDSIDE TO PROVIDE COMFORT. PT VERBALIZES UNDERSTANDING. ALL COMFORT AND SAFETY MEASURES PROVIDED FOR, CALL LIGHT WITHIN REACH, BED IN LOWEST POSITION, WILL CONTINUE TO MONITOR.
--- NOTE | 2018-08-02 05:05 | NUR ---
PT RESTED IN INTERVALS DURING SHIFT, NO ACUTE CHANGES OCCURRING OVERNIGHT. PT REMAINS AFEBRILE DURING SHIFT, PT MEDICATED WITH TYLENOL FOR BREAKTHROUGH PAIN. PT DSG TO RT FOOT REMAINS CDI, IV SITE REMAINS PATENT TO RFA NS @ 100ML/HR. NO REDNESS, SWELLING OR PAIN NOTED. ALL COMFORT AND SAFETY MEASURES PROVIDED FOR, CALL LIGHT WITHIN REACH, BED IN LOWEST POSITION, WILL CONTINUE TO MONITOR.
[2018-08-02 05:45] VITALS: BP 141/87
[2018-08-02 06:38] LABS: BASOPHIL % 0.3 % (0-2); PLATELET COUNT 304 x10^3mcL (130-400); RED CELL DISTRIBUTION WIDTH 12.4 % (11.5-14.5)
[2018-08-02 06:47] LABS: CALCIUM 8.3 mg/dL (8.5-10.1); CARBON DIOXIDE 27.4 mmol/L (21-32); CHLORIDE SERUM 100 mmol/L (98-107); CREATININE SERUM 0.8 mg/dL (0.7-1.3); GFR1 > 60 mL/min; GLUCOSE SERUM 290 mg/dL (74-106); PHOSPHOROUS 3.2 mg/dL (2.5-4.9); SODIUM SERUM 136 mmol/L (136-145)
--- NOTE | 2018-08-02 07:25 | NUR ---
RECEIVED BEDSIDE REPORT FROM IRRIGATION DISTRICT MANAGER NURSE AT THIS TIME. PATIENT RESTING COMFORTABLY IN BED. FAMILY MEMBER AT BEDSIDE. NO APPARENT DISTRESS OR DISCOMFORT NOTED. BREATHING EVEN AND UNLABORED. NO RESPIRATORY DISTRESS NOTED. PATIENT DENIES SHORTNESS OF BREATH. PATIENT DENIES CHEST PAIN AT THIS TIME. IV PATENT AND INTACT INFUSING AT 100 ML/HR. ALL QUESTIONS AND CONCERNS ADDRESSED. ALL NEEDS ATTENDED TO. WILL CONTINUE TO MONITOR
--- NOTE | 2018-08-02 07:37 | NUR ---
ENDORSED ALL CARE TO DAYSHIFT NURSE, ALL QUESTIONS AND CONCERNS ADDRESSED, ALL COMFORT AND SAFETY MEASURES PROVIDED FOR, CALL LIGHT WITHIN REACH. BED IN LOWEST POSITION.
[2018-08-02 09:36] VITALS: BP 141/75
--- NOTE | 2018-08-02 10:18 | NUR ---
ALL MORNING MEDICATIONS ADMINISTERED. PATIENT TOLERATED MEDICATION WELL. NO ADVERSE EFFECTS NOTED. ALL NEEDS ATTENDED TO. WILL CONTINUE TO MONITOR
--- NOTE | 2018-08-02 11:44 | NUR ---
Follow-up Nutrition Assessment- 208/A OCTAVIANO VASQUEZ HR Dx: Diabetic foot infection, osteomyelitis Labs: BG 290H, A1C 11.4H Meds: D50, Glucotrol, humulin, lactinex, norco, zofran Diet: CCHO PO intake: (08/02) breakfast 100% Weights: (07/29): 65 kg Skin: s/p partial 2nd toe amputation to right foot Gulshan: 20 Edema: none Last BM: 07/31 RDN Visit(08/02): Pt is S/P right toe amputation. Per bed huddles, pt is to be D/C'D today or tomorrow. Pt has good appetite and ate all of his breakfast this morning. No N/V/D at this time. Previous RDN visit (07/29): Diabetes diet education was provided using [facility] handout on 'type 2 Diabetes Nutrition Therapy'. Topics discussed included label reading, portion control and types of carbohydrates. Estimated Nutritional Needs Based on actual body weight 65 kg Energy:8878-2929 kcal/d (30-35 kcal/kg-wound) Protein:65-78 g/d (1.0-1.2 g/kg)- wound and preservation of lean body mass Fluid: 4838-9992 ml/d (1 ml/kcal-fluid balance) or per doctor Nutrition Diagnosis 1.Increased nutrient needs related to metabolic demands as evidenced by infected wound. (ongoing-improving) 2.Altered nutrition related lab values related to endocrine dysfunction as evidenced by BG 474, A1C 11.4 (ongoing-improving) Intervention 1. Continue CCHO diet. Monitor/Evaluate Previous goal: progress to CCHO (met) Goal: PO intake at least 75% of estimated needs Monitor: PO intake, Labs, GI function F/U in 7 days as low risk 08/09
--- NOTE | 2018-08-02 11:44 | NUR ---
1. Continue CCHO diet.
--- NOTE | 2018-08-02 12:14 | NUR ---
PAGED DR LAGUERRE THAT PATIENT REFUSING INSULIN COVERAGE AT THIS TIME. WILL CONTINUE TO MONITOR PATIENT
--- NOTE | 2018-08-02 16:33 | NUR ---
PATIENT REFUSING BLOOD SUGAR CHECK AT THIS TIME.DR HORTON AWARE AND STATES TO CHART PATIENT REFUSING. DR HORTON AT BEDSIDE TO REVIEW POC WITH PATIENT. PATIENT EXPRESSES FEELINGS OF NOT WANTING TO STAY IN THE HOSPITAL AND HE JUST WANTS TO GO HOME. DR HORTON EXPLAINS TO PATIENT TO STAY ONE MORE NIGHT TO BE ABLE TO WORK WITH PHYSICAL THERAPY AND WORK WITH CRUTCHES. PATIENT AND VERBALIZE UNDERSTANDING. ALL QUESTIONS AND CONCERNS ADDRESSED. ALL NEEDS ATTENDED TO. WILL CONTINUE TO MONITOR
[2018-08-02 17:44] VITALS: BP 141/88
--- NOTE | 2018-08-02 18:52 | NUR ---
PATIENT RESTING COMFORTABLY IN BED AT THIS TIME. NO APPARENT DISTRESS OR DISCOMFORT NOTED. FAMILY MEMBER AT BEDSIDE. IV PATENT AND INTACT. ALL QUESTIONS AND CONCERNS ADDRESSED. SAFETY PRECAUTIONS MAINTAINED. ALL NEEDS ATTENDED TO. WILL ENDORSE ALL CARE TO HORSE IDENTIFIER NURSE
--- NOTE | 2018-08-02 19:40 | NUR ---
RECEIVED REPORT FROM DAY SHIFT RN. PT RESTING IN BED. AA&O X4. NO SOB ON ROOM AIR. NO C/O PAIN AT THIS TIME. IV TO RFA, NS INFUSING. DRESSING TO RIGHT FOOT, CDI. SAFETY MEASURES IN PLACE. BED IN LOWEST POSITION. SIDE RAILS UP X2. DEMONSTRATED HOW TO USE THE CALL LIGHT FOR ASSISTANCE. CALL LIGHT WITHIN REACH. FAMILY AT BEDSIDE.
--- NOTE | 2018-08-02 20:31 | NUR ---
PT C/O RIGHT FOOT THROBBING PAIN 10/, MEDICATED WITH NORCO.
[2018-08-02 21:08] VITALS: BP 138/88
--- NOTE | 2018-08-03 01:42 | NUR ---
C/O RIGHT FOOT THROBBING PAIN 12/06. MEDICATED WITH NORCO.
--- NOTE | 2018-08-03 02:40 | NUR ---
PT RESTING WITH EYES CLOSED. NO FACIAL GRIMACING. NO DISTRESS NOTED. CALL LIGHT WITHIN REACH. AT BEDSIDE.
--- NOTE | 2018-08-03 05:27 | NUR ---
PT SLEPT IN INTERVALS DURING SHIFT. NO ACUTE CHANGES DURING SHIFT. DRESSING TO RIGHT FOOT REMAINS CDI. SAFETY MEASURES MAINTAINED. ALL NEEDS ATTENDED TO. CALL LIGHT WITHIN REACH. AT BEDSIDE. WILL ENDORSE CONTINUITY OF CARE TO ONCOMING RN.
[2018-08-03 05:52] VITALS: BP 131/77
[2018-08-03 06:27] LABS: CALCIUM 8.5 mg/dL (8.5-10.1); CARBON DIOXIDE 28.5 mmol/L (21-32); CHLORIDE SERUM 101 mmol/L (98-107); CREATININE SERUM 0.9 mg/dL (0.7-1.3); GFR1 > 60 mL/min; GLUCOSE SERUM 416 mg/dL (74-106); MAGNESIUM 1.9 mg/dL (1.8-2.4); PHOSPHOROUS 3.8 mg/dL (2.5-4.9); SODIUM SERUM 137 mmol/L (136-145)
--- NOTE | 2018-08-03 07:15 | NUR ---
RECEIVED PATIENT AWAKE/ALERT IN BED, NO C/O PAIN. PATIENT WANT TO GO HOME INFORM PATIENT WILL WAIT FOR DOCTOR TO ROUND. IV TO RFA INTACT AND INFUSING WELL. POC EXPLAINED. CALL LIGHT IN REACH.
[2018-08-03 08:14] LABS: BASOPHIL % 0.3 % (0-2); PLATELET COUNT 330 x10^3mcL (130-400); RED CELL DISTRIBUTION WIDTH 12.4 % (11.5-14.5)
--- NOTE | 2018-08-03 08:51 | NUR ---
LATE ENTRY AT 0851: PATIENT WANT TO LEAVE AMA; DR. BARRY AT BEDSIDE EXPLAINED TO PATIENT AT LEAST NEED TO CHANGE RT FOOT DRESSING BEFORE LEAVING, PATIENT AGREE. PT REPORT WHEN AT BEDSIDE ATTEMPT TO TEACH PATIENT USE CRUTCHES, PATIENT GOT UPSET SET PULL IV OUT IN FRONT OF PT AND RAIL TRANSPORTATION OPERATOR GERARDO WAS PRESENT TO TRANSLATE WITNESS PATIENT PULL OUT HIS IV. WHEN NURSE CAM IN TO CHECK PATIENT DID NOT ALLOW HER TO ASSESS THE SITE.
--- NOTE | 2018-08-03 09:07 | NUR ---
PATIENT REFUSED TO SIGN AMA AND WANT TO SPEAK WITH CM, CALLED CM FOR NOT PICKING UP.
--- NOTE | 2018-08-03 09:09 | NUR ---
DR. BARRY AT BEDSIDE INFORM PATIENT REGARD F/U APPT. PATIENT VERBALIZE UNDERSTAND AND DR. BARRY WILL PROVIDE PATIENT INFO.
--- NOTE | 2018-08-03 09:52 | NUR ---
DR. HOU ROUND WITH MEDICAL TEAM, PATIENT ANGRY STATED WANT TO LEAVE, DR. HOU ASK PATIENT TO BE PATIENCE WILL GET PATIENT DISCHARGE THIS AFTERNOON. PATIENT VERBALIZE DON'T WANT NURSE TO BE IN HIS ROOM AND "I WILL PUNCH HER". PATIENT UNCOOPERATED WITH MEDS. MEDS NOT GIVEN.
[2018-08-03 09:53] VITALS: BP 122/78
--- NOTE | 2018-08-03 10:14 | NUR ---
RECEIVED PT FROM YURY MIKE. REPORT GIVEN. MET WITH AND ASSESSED PT. PT STATES R FOOT PAIN IS 8/10. NORCO WILL BE GIVEN. CALL LIGHT WITHIN REACH. AT BEDSIDE.
[2018-08-03] MEDS ORDERED: LEVAQUIN750 MG PO (10:39)
[2018-08-03] MEDS ORDERED: DIFLUCAN200 MG PO (10:40)
[2018-08-03] MEDS ORDERED: NOR10T PO (10:41)
[2018-08-03 11:05] VITALS: BP 122/78
--- NOTE | 2018-08-03 11:56 | NUR ---
PT REFUSED ACCU-CK AND DUE MEDICATION LATINEX. PT IS UP DANCING IN ROOM. DENIES PAIN. AWAITING RIDE TO PICK HIM UP FOR DISCHARGED. CALL LIGHT WITHIN REACH.
--- NOTE | 2018-08-03 12:25 | NUR ---
PT IS DISCHARGED TO HOME IN NO DISTRESS. DISCHARGE INSTRUCTIONS REVIEWED, ALL FORMS SIGNED. RX GIVEN TO PT. P/T GAVE PT CRUTCHES, ADJUSTED TO FIT PT AND EXPLAINED HOW TO USE THEM. PT DEMONSTRATED UNDERSTANDING. IV CATH TO RFA PULLED OUT BY PT, CATH TIP INTACT. SITE WNL. COVERED WITH GAUZE AND BANDAID. FS: 98.6, 88, 18, 122/78, 96% R/A. PT DENIES PAIN AT TIME OF D/C. ALL PERSONAL BELONGINGS TAKEN HOME.
== END 2018-08-03 12:28 | disposition home or self-care (01) | DRG 616 ==
LOC: ED 23:01 → MU 07-29 02:57
PROVIDERS: Emergency Medicine; Family Medicine; Podiatrist; ADMIT Internal Medicine
PROC: 0J9Q0ZZ Drainage of Right Foot Subcutaneous Tissue and Fascia, Open Approach (ICD-10-PCS; 2018-07-30)
PROC: 0Y6R0Z0 Detachment at Right 2nd Toe, Complete, Open Approach (ICD-10-PCS; principal; 2018-08-01 07:30)
DX: E11.69 Type 2 diabetes mellitus with other specified complication (principal); A48.0 Gas gangrene; E44.0 Moderate protein-calorie malnutrition; E87.1 Hypo-osmolality and hyponatremia; M86.8X7 Other osteomyelitis, ankle and foot; E11.621 Type 2 diabetes mellitus with foot ulcer; L97.519 Non-pressure chronic ulcer of other part of right foot with unspecified severity; E78.00 Pure hypercholesterolemia, unspecified; F17.210 Nicotine dependence, cigarettes, uncomplicated; F12.90 Cannabis use, unspecified, uncomplicated; E78.5 Hyperlipidemia, unspecified; F41.9 Anxiety disorder, unspecified; Z79.84 Long term (current) use of oral hypoglycemic drugs; Z68.23 Body mass index [BMI] 23.0-23.9, adult
CPT/HCPCS: 82962; 84439; J1815; J1956; J2001; J2250; J2270; J2405; J2543; J3010; J3370; J3490; J7030; J7050; Q0092

== ENCOUNTER 2018-12-05 12:32 | Emergency (ER) | payer SELFPAY ==
[~2018-12-05] VITALS: Ht 165.1 cm; Wt 68.5 kg
[~2018-12-05 12:32] MED LIST changes: +DIFLUCAN200 MG PO; +LEVAQUIN750 MG PO; +NOR10T PO
[2018-12-05 12:53] VITALS: Ht 165.1 cm; Wt 68.5 kg
[2018-12-05 19:10] VITALS: BP 111/71
== END 2018-12-05 19:10 | disposition home or self-care (01) ==
LOC: ED 12:32
DX: L03.115 Cellulitis of right lower limb (principal); E11.9 Type 2 diabetes mellitus without complications; E78.00 Pure hypercholesterolemia, unspecified; Z98.890 Other specified postprocedural states
CPT/HCPCS: J1885; Q0092

== ENCOUNTER 2018-12-09 20:26 | Inpatient (IN) | payer MEDICAID ==
[~2018-12-09] VITALS: Ht 165.1 cm; Wt 72.0 kg
[2018-12-09 20:29] VITALS: Ht 165.1 cm; Wt 72.0 kg
--- NOTE | 2018-12-09 21:06 | NUR ---
PT RESTING IN BED ON LT SIDE WITH C/O 10/10 PAIN TO RT FOOT WITH SWELLING X 6 DAYS WITH N/V AND CHILLS/FEVERS. PT DENIES ANY INJURY/TRAUMA. PT DENIES DIARRHEA/CONSTIPATION, RESP ILLNESS, OR URINARY PROBLEMS AT THIS TIME. NO SIGNS OF DISTRESS.
[2018-12-09 21:07] LABS: BASOPHIL % 0.5 % (0-2); PLATELET COUNT 294 x10^3mcL (130-400); RED CELL DISTRIBUTION WIDTH 13.4 % (11.5-14.5)
[2018-12-09 21:16] LABS: CALCIUM 8.6 mg/dL (8.5-10.1); CARBON DIOXIDE 30.5 mmol/L (21-32); CHLORIDE SERUM 99 mmol/L (98-107); CREATININE SERUM 0.8 mg/dL (0.7-1.3); GFR1 > 60 mL/min; GLUCOSE SERUM 372 mg/dL (74-106); POTASSIUM SERUM 4.3 mmol/L (3.5-5.1); SODIUM SERUM 136 mmol/L (136-145)
[2018-12-09 21:21] LABS: ALBUMIN 3.3 g/dL (3.4-5.0); ALKALINE PHOSPHATASE 157 U/L (46-116); ALT/SGPT 17 U/L (16-63); AST/SGOT 7 U/L (15-37); BILIRUBIN TOTAL 0.19 mg/dL (0.20-1.00); C REACTIVE PROTEIN 1.4 mg/dL (<=0.9); TOTAL PROTEIN, SERUM 7.3 g/dL (6.4-8.2)
--- NOTE | 2018-12-09 22:35 | NUR ---
PT RESTING IN BED WITH NO SIGNS OF DISTRESS.
--- NOTE | 2018-12-09 23:05 | NUR ---
PT RESTING IN BED ON LT SIDE WITH EYES CLOSED WITH NO SIGNS OF DISTRESS AT THIS TIME.
--- NOTE | 2018-12-10 00:05 | NUR ---
PT RESTING IN BED WITH BREATHS EVEN AND UNLABORED WITH NO SIGNS OF DISTRESS.
[2018-12-10 00:22] LABS: APPEARANCE FLUID BLOODY; COLOR FLUID RED; SITE FLUID RIGHT; SOURCE FLUID SYNOVIAL FLUID
[2018-12-10 00:23] LABS: RBC FLUID 19250 /cumm; WBC FLUID 0 /cumm
--- NOTE | 2018-12-10 00:41 | NUR ---
REPORT GIVEN TO NEETU COTTON.
[2018-12-10 01:56] LABS: FREE T4 1.15 ng/dL (0.76-1.46); FREE THYROXINE INDEX 2.9 ug/dL (1.4-4.5); T4(THYROXINE) 7.8 ug/dL (4.7-13.3)
--- NOTE | 2018-12-10 02:24 | NUR ---
RECEIVED FROM ED VIA WHEELCHAIR,Wowza Media SystemsAna Maria ANDERSEN.PUT IN ROOM 256 B AND MADE COMFORTABLE.PATIENT MAINLY ARMENIAN,NEEDS ANTICIPATED.WILL ADMIT PATIENT.CALL LIGHT IN REACH.
[2018-12-10 02:53] VITALS: BP 117/73
--- NOTE | 2018-12-10 03:02 | NUR ---
PATIENT ADMISSION HX AND ASSESSMENT DONE.SERGEY STATED HE IS HOMELESS.BUT FRIEND ON LIST,CONTACT.PATIENT ADMISSION,R FOOT CELLULITIS,SWOLLEN,HAD ASPIRATION AND SPECIMEN SENT TO LAB,CAME BACK NEGATIVE,NO SKIN BREAKDOWN OR OPEN ARAE ON AFFECTED SITE.SWOLLEN 2+.AMPUTATION R SECOND TOE.LAYNE,HX.PATIENT STATED HE NEVER SMOKE OR DRUGS.WILL INITIATE PLAN OF CARE.WILL FOLLOW UP ADMIT ORDER.CALL LIGHT IN REACH.DECLINE PNEUMO VACCINE.PATIENT IS DIABETIC,CLAIM HE HAD FLU VACCINE THIS SEASON.
[2018-12-10 03:27] VITALS: BP 117/73
--- NOTE | 2018-12-10 05:10 | NUR ---
REMINDED DR NORRIS,DIET,AIC ELEVATED,DIABETIC.NO ORDER YET.
--- NOTE | 2018-12-10 05:55 | NUR ---
PATIENT HAS NO DISTRESS SINCE ADMIT.DR NORRIS MADE AWARE OF ELEVATED AIC.ALSO HAS NO DIET YET.NO UA ORDERED.NS AT 100 CC/ HOUR.IV SITE GOOD.
[2018-12-10 06:24] LABS: BASOPHIL % 0.5 % (0-2); PLATELET COUNT 256 x10^3mcL (130-400); RED CELL DISTRIBUTION WIDTH 13.4 % (11.5-14.5)
[2018-12-10 06:35] LABS: CALCIUM 7.7 mg/dL (8.5-10.1); CARBON DIOXIDE 29.6 mmol/L (21-32); CHLORIDE SERUM 103 mmol/L (98-107); CREATININE SERUM 0.6 mg/dL (0.7-1.3); GFR1 > 60 mL/min; GLUCOSE SERUM 215 mg/dL (74-106); SODIUM SERUM 138 mmol/L (136-145)
--- NOTE | 2018-12-10 06:37 | NUR ---
DR NORRIS ORDERED ACCUCHECK,206 GIVEN 6 UNITS RISS.ALSO DIET.
--- NOTE | 2018-12-10 07:30 | NUR ---
AAO TIMES 4. MED SURG PATIENT. LUNGS CTA. NO SOB. O2 SAT ON RA 97%. BS'S ACTIVE TIMES 4. IRVIN STRONG, RLE C/O PAIN WITH WALKING. PERIPHERAL PULSES PALPABLE. NO EDEMA. +1 EDEMA RLE. COOPERATIVE, STARTED CRYING WHEN ASKED IF HE WAS HOMELESS, HE STATED "YES."
[2018-12-10 09:37] VITALS: BP 99/67
--- NOTE | 2018-12-10 13:27 | NUR ---
250 ML BOLUS NS ORDERED BY DR PAULA FOR BP OF 99/67, HR 83, INFUSED OVER 1 HOUR STARTED AT 1227, FINISHED AT 1327. BP AND HR AFTER THE BOLUS ARE 121/83, AND HR 80.
[2018-12-10 16:41] LABS: AMPHETAMINE QUAL UR NONE DETECTED (See below)
[2018-12-10 16:51] VITALS: BP 147/90
--- NOTE | 2018-12-10 18:21 | NUR ---
AAO TIMES 4. NO TELE. NO C/O PAIN. NO SOB. RLE WITH LEG ELEVATED ON PILLOW. IV SITE CDI. COOPERATIVE. MED SURG PATIENT. WATCHING TV.
--- NOTE | 2018-12-10 19:25 | NUR ---
RECIEVED PT RESTING IN BED WITH NO ACUTE DISTRESS NOTED, ASSESSMENT PERFORMED AT THIS TIME, PT IS A/OX4, PT DENIES ANDREWS OR DIZZINESS AT THIS TIME, PT RIGHT FOOT HAS MINOR SWELLING, BUT PATIENT DENIES PAIN AT THIS TIME, ALL NEEDS ATTENDED TO AT THIS TIME, SAFETY PRECAUTIONS IN PLACE, WILL COTNINUE TO MONITOR
[2018-12-10 20:07] VITALS: BP 115/70
--- NOTE | 2018-12-10 22:30 | NUR ---
PT RESTING IN BED WATCHING TV, PT DENIES PAIN AT THIS TIME, PT REQUESTING ORANGE JELLO, ALL NEEDS ATTENDED TO, SAFETY PRECAUTIONS IN PLACE WILL CONTINUE TO MONITOR.
--- NOTE | 2018-12-11 00:20 | NUR ---
PT RESTING IN BED WITH TV OFF, NO SIGNS OF DISTRESS, RESPIRATIONS EVEN AND UNLABORE, ALL NEEDS ATTENDED TO, SAFETY PRECAUTIONS IN PLACE, WILL CONTINUE TO MONITOR
--- NOTE | 2018-12-11 03:40 | NUR ---
PT RESTING UP AND AMBULATED TO BATHROOM AND HAD ONE VOID, PT GAIT BALANCED AND STEADY, SAFETY PRECAUTIONS IN PLACE, WILL CONTINUE TO MONITOR
--- NOTE | 2018-12-11 05:14 | NUR ---
PT RESTED THROUGH THE NIGHT WITH NO EPISODES OF ACUTE PAIN TO RIGHT FOOT, PT RESTED THROUGH EVENING AND OCCASIONALLY WATCHED TV, ALL PATIENT NEEDS WERE ATTENDED TO WILL CONTINUE TO MONITOR AND ENDORSE CARE TO ONCOMING DAY SHIFT RN
[2018-12-11 05:22] VITALS: BP 114/69
--- NOTE | 2018-12-11 06:30 | NUR ---
PT REPORTS PAIN HAS NOT DECREASED AND NO OTHER PAIN MEDS ARE ORDERED, PT REPOSITIONED TO COMFORT, DR LUNDBERG NOTIFIED AND SAID THEY WOULD PUT NEW ORDER IN
[2018-12-11 07:37] LABS: BASOPHIL % 0.5 % (0-2); PLATELET COUNT 265 x10^3mcL (130-400); RED CELL DISTRIBUTION WIDTH 13.4 % (11.5-14.5)
[2018-12-11 07:46] LABS: CALCIUM 8.3 mg/dL (8.5-10.1); CARBON DIOXIDE 30.6 mmol/L (21-32); CHLORIDE SERUM 103 mmol/L (98-107); CREATININE SERUM 0.7 mg/dL (0.7-1.3); GFR1 > 60 mL/min; GLUCOSE SERUM 165 mg/dL (74-106); POTASSIUM SERUM 4.3 mmol/L (3.5-5.1); SODIUM SERUM 138 mmol/L (136-145)
--- NOTE | 2018-12-11 08:07 | NUR ---
AAO TIMES 4. NO TELE. LUNGS CTA. NO SOB. O2 SAT ON RA 98%. BS'S ACTIVE TIMES 4. IRVIN STRONG. PERIPHERAL PULSES PALPABLE. +1 EDEMA RLE. RLE ELEVATED ON PILLOW. IV SITE CDI. COOPERATIVE.
[2018-12-11 08:43] VITALS: BP 104/75
[2018-12-11 17:24] VITALS: BP 123/82
--- NOTE | 2018-12-11 18:20 | NUR ---
AAO TIMES 4. MED SURG PATIENT. NO SOB. RIGHT FOOT ELEVATED ON PILLOW, THE EDEMA HAS GONE DOWN. IV SITE CDI. COOPERATIVE. HE AMBULATES IN THE HALLWAYS SOMETIMES. FAMILY CAME TO VISIT HIM TODAY. NO C/O PAIN, GAVE NORCO PO AT [id number].
--- NOTE | 2018-12-11 19:30 | NUR ---
PT RECIEVED FROM DAY NURSE. PT RESTING IN BED AT THIS TIME. DENIES PAIN OR DISCOMFORT. AT BEDSIDE. A/O X4, CALM AND COOPERATIVE. PT M/S DENIES CP, NV, DIZZINESS, OR PALPATATIONS. PALPABLE PULSES, R FOOT SWELLING NOTED AT THIS TIME. ELEVATED WITH PILLOWS. BREATHING E/U ON RA. ABD SOFT AND ROUND. DENIES PAIN TO PALPATION. AMBULATORY AT BASELINE. STEADY GAIT NOTED. LFA IV CDI. BED AT LOWEST POSITION. CALL LIGHT WITHIN REACH. WILL CONTINUE TO MONITOR.
[2018-12-11 20:29] VITALS: BP 116/70
--- NOTE | 2018-12-11 21:30 | NUR ---
PT COMPLAINING OF R LEG PAIN. MEDICATED PT WITH NORCO. WILL CONTINUE TO MONITOR.
--- NOTE | 2018-12-12 | NUR ---
PT RESTING IN BED AT THIS TIME. NO S/S OF PAIN OR DISTRESS NOTED. BREATHING E/U ON RA. BED AT LOWEST POSITION. CALL LIGHT WITHIN REACH. WILL CONTINUE TO MONITOR.
[2018-12-12 05:10] VITALS: BP 115/72
--- NOTE | 2018-12-12 06:15 | NUR ---
PT RESTING IN BED AT THIS TIME. COMPLAINING OF 6/10 PAIN IN THE RIGHT FOOT. MEDICATED WTIH PRN NORCO. BREATHING E/U ON RA. ALL NEEDS ADDRESSED THIS SHIFT. BED AT LOWEST POSITION. CALL LIGHT WITHIN REACH. WILL ENDORSE TO DAY NURSE.
--- NOTE | 2018-12-12 07:36 | NUR ---
RECEIVED AWAKE, ALERT AND ORIENTED. NO RESP. DISTRESS. VS WNL. NO C/O PAIN OR DISCOMFORT AT THIS TIME. IVF TO TKO AND SITE CLEAR. CALL LIGHT WITHIN REACH. WILL CONTINUE WITH PLAN OF CARE.
[2018-12-12 08:51] VITALS: BP 97/62
--- NOTE | 2018-12-12 12:03 | NUR ---
NORCO GIVEN FOR PAIN TO RLE 01/05.
--- NOTE | 2018-12-12 14:51 | NUR ---
PHYSICAL THERAPY DAILY NOTES CO-SIGN All documentation done by the Lens [employer]inder for 12/12/18 has been reviewed. I agree with the documentation. Reviewed/Co-Signed by: Candi Arias PT Documentation Done by:KENZIE ORO PTA
--- NOTE | 2018-12-12 16:16 | NUR ---
WALKING AROUND ON THE HALLWAYS, NO DISTRESS NOTED. DENIES PAIN OR DISCOMFORT.
[2018-12-12 16:34] VITALS: BP 117/77
--- NOTE | 2018-12-12 17:00 | NUR ---
PT C/O PAIN TO RLE 01/05. MEDICATED WITH NORCO PER ORDER. ENCOURAGED TO KEEP LEG ELEVETED WHILE IN BED.
--- NOTE | 2018-12-12 17:18 | NUR ---
Discount pharmacy card and list to low cost medical clinics given to patient by Josefina Solomon.
--- NOTE | 2018-12-12 18:34 | NUR ---
PT REMAINS IN NO DISTRESS, AWAKE, ALERT AND ORIENTED. NO CHANGES IN VS. NO C/O PAIN OR DISCOMFORT. IVF INFUSING WELL TO KVO AND SITE CLEAR. CALL LIGHT WITHIN REACH. WILL BE ENDORSED TO INCOMING SHIFT.
[2018-12-12 19:23] VITALS: BP 118/77
--- NOTE | 2018-12-12 19:30 | NUR ---
RECEIVED PT SITTING AT THE EDGE OF THE BED. NO DISTRESS NOTED. DENIES ANY PAIN AT THIS TIME. BED IN LOWEST POSITION,CALL LIGHT WITHIN REACH. WILL CONTINUE TO MONITOR.
--- NOTE | 2018-12-12 19:42 | NUR ---
SEEN PT WALKING THE HALLWAY. NO SOB NOTED. NO INCIDENT HAPPENED. WILL CONTINUE TO MONITOR.
--- NOTE | 2018-12-12 21:36 | NUR ---
PT C/O RIGHT FT PAIN 11/05 AND ANDREWS 08/05. MEDICATED NORCO 7.5/325 MG PO ORDERED. WILL CONTINUE TO MONITOR.
--- NOTE | 2018-12-13 04:58 | NUR ---
PT ASLEEP. NO SOB NOTED.DENIES PAIN AT THIS TIME. RIGHT LEG ELEVATED. BED IN LOWEST POSITION,CALL LIGHT WITHIN REACH. WILL CONTINUE TO MONITOR.
[2018-12-13 05:14] VITALS: BP 110/76
[2018-12-13 06:14] LABS: BASOPHIL % 0.5 % (0-2); PLATELET COUNT 281 x10^3mcL (130-400); RED CELL DISTRIBUTION WIDTH 13.8 % (11.5-14.5)
[2018-12-13 06:41] LABS: CALCIUM 8.6 mg/dL (8.5-10.1); CARBON DIOXIDE 30.5 mmol/L (21-32); CHLORIDE SERUM 101 mmol/L (98-107); CREATININE SERUM 0.7 mg/dL (0.7-1.3); GFR1 > 60 mL/min; GLUCOSE SERUM 273 mg/dL (74-106); MAGNESIUM 2.3 mg/dL (1.8-2.4); PHOSPHOROUS 3.7 mg/dL (2.5-4.9); POTASSIUM SERUM 4.4 mmol/L (3.5-5.1); SODIUM SERUM 138 mmol/L (136-145)
--- NOTE | 2018-12-13 07:05 | NUR ---
RECEIVED PT FROM SECTION GANG WORKER NURSE. PT RESTING IN BED, AOX4, RESP E/U ON RA. REPORTED PAIN TO R FOOT /10. WILL CARRY OUT MED ORDERS PER EMAR, COMFORT MEASURES IMPLEMENTED. IV TO LFA W/ NO SIGNS OF INFILTRATION, IVF INFUSING WELL. BED IN LOWEST POSITION AND CALL LIGHT WITHIN REACH. WILL CONTINUE TO MONITOR.
--- NOTE | 2018-12-13 07:22 | NUR ---
CARE ENDORSED TO DAY NURSE
--- NOTE | 2018-12-13 07:24 | NUR ---
PHYSICAL THERAPY NOTE PATIENT IS INDEPENDENT IN BED MOBILITY AND TRANSFERS, STAND BY ASSIST FOR GAIT. GOALS MET. NO FOLLOW UP PHYSICAL THERAPY SESSIONS WARRANTED AT THIS TIME. END TO NSG FOR MOBILITY AND ADL NEEDS.
[2018-12-13 08:48] VITALS: BP 125/80
[2018-12-13] MEDS ORDERED: CLEOCIN HCL150 MG PO (11:47)
--- NOTE | 2018-12-13 12:25 | NUR ---
PT RESTING IN BED, AOX4, RESP E/U ON RA. REPORTED PAIN TO R FOOT DURING HIS WALK, BUT AT REST NO PAIN NOTED. BED IN LOWEST POSITION AND CALL LIGHT WITHIN REACH. WILL CONTINUE TO MONITOR.
[2018-12-13 12:52] VITALS: BP 125/80
[2018-12-13] MEDS ORDERED: CEPHALEXIN500 MG PO (12:54)
[2018-12-13] MEDS ORDERED: DOXYCYCLINE HY100 MG PO (12:54)
--- NOTE | 2018-12-13 14:38 | NUR ---
PT DISCHARGED. REVIEWED VISIT SUMMARY, EDUCATIONAL PACKET, RX MEDS AND FOLLOW UP INSTRUCTIONS W/ PT. PT AOX4, RESP E/U, VS STABLE, DENIES PAIN AT THIS TIME. IV TO LFA REMOVED, CATH INTACT, GAUZE DRESSING APPLIED. PT AMBULATORY TO DISCHARGE OFFICE, ESCORTED BY STUDENT NURSE RUMA W/ NO ACUTE INCIDENCE.
== END 2018-12-13 14:38 | disposition home or self-care (01) | DRG 383 ==
LOC: ED 20:26 → MU 12-10 00:06
PROVIDERS: Emergency Medicine; ADMIT Internal Medicine
PROC: 0S9F3ZZ Drainage of Right Ankle Joint, Percutaneous Approach (ICD-10-PCS; principal; 2018-12-09)
DX: L03.115 Cellulitis of right lower limb (principal); N17.0 Acute kidney failure with tubular necrosis; E11.65 Type 2 diabetes mellitus with hyperglycemia; E44.1 Mild protein-calorie malnutrition; M25.471 Effusion, right ankle; E78.5 Hyperlipidemia, unspecified; F15.10 Other stimulant abuse, uncomplicated; Z59.0 Homelessness; Z89.421 Acquired absence of other right toe(s); Z68.24 Body mass index [BMI] 24.0-24.9, adult; Z79.84 Long term (current) use of oral hypoglycemic drugs
CPT/HCPCS: 82962; 84439; 97110-GP; 97116-GP; G0378; J0690; J2270; J2405; J2543; J3370; J3490; J7030; J7050

== ENCOUNTER 2019-03-02 18:22 | Inpatient (IN) | payer OTHER ==
[~2019-03-02] VITALS: Ht 165.1 cm; Wt 67.8 kg
[~2019-03-02 18:22] MED LIST changes: +CEPHALEXIN500 MG PO; +CLEOCIN HCL150 MG PO; +DOXYCYCLINE HY100 MG PO
[2019-03-02 18:26] VITALS: Ht 165.1 cm; Wt 67.8 kg
[2019-03-02 19:18] LABS: BASOPHIL % 0.5 % (0-2); PLATELET COUNT 250 x10^3mcL (130-400); RED CELL DISTRIBUTION WIDTH 13.3 % (11.5-14.5)
[2019-03-02 19:25] LABS: CALCIUM 8.1 mg/dL (8.5-10.1); CHLORIDE SERUM 98 mmol/L (98-107); GFR1 > 60 mL/min; GLUCOSE SERUM 436 mg/dL (74-106); POTASSIUM SERUM 4.3 mmol/L (3.5-5.1); SODIUM SERUM 136 mmol/L (136-145)
[2019-03-02 19:30] LABS: ALBUMIN 3.2 g/dL (3.4-5.0); ALKALINE PHOSPHATASE 204 U/L (46-116); ALT/SGPT 24 U/L (16-63); AST/SGOT 6 U/L (15-37); BILIRUBIN TOTAL 0.2 mg/dL (0.20-1.00); TOTAL PROTEIN, SERUM 6.9 g/dL (6.4-8.2)
[2019-03-02 20:52] LABS: microscopic required? YES; urine erythrocyte TRACE (NEGATIVE)
[2019-03-02 20:53] LABS: HDL CHOLESTEROL 37 mg/dL (40-60); MAGNESIUM 2.1 mg/dL (1.8-2.4); PHOSPHOROUS 3.2 mg/dL (2.5-4.9)
[2019-03-02 21:04] LABS: CHOLESTEROL 205 mg/dL (<200); CHOLESTEROL/HDL RATIO 5.5; TRIGLYCERIDES 405 mg/dL (<150)
[2019-03-02 21:53] VITALS: BP 147/93
[2019-03-02 22:21] LABS: AMPHETAMINE QUAL UR NONE DETECTED (See below)
[2019-03-03 04:25] VITALS: BP 151/94
[2019-03-03 06:33] LABS: CALCIUM 7.6 mg/dL (8.5-10.1); CARBON DIOXIDE 28.9 mmol/L (21-32); CHLORIDE SERUM 103 mmol/L (98-107); CREATININE SERUM 0.7 mg/dL (0.7-1.3); GFR1 > 60 mL/min; GLUCOSE SERUM 323 mg/dL (74-106); PHOSPHOROUS 3.4 mg/dL (2.5-4.9); POTASSIUM SERUM 4.1 mmol/L (3.5-5.1); SODIUM SERUM 138 mmol/L (136-145)
[2019-03-03 07:30] LABS: BASOPHIL % 0.3 % (0-2); PLATELET COUNT 203 x10^3mcL (130-400); RED CELL DISTRIBUTION WIDTH 13.5 % (11.5-14.5)
[2019-03-03 07:44] VITALS: BP 138/81
[2019-03-03 16:29] VITALS: BP 140/80
[2019-03-03 20:58] VITALS: BP 131/78
[2019-03-04 04:15] VITALS: BP 127/82
[2019-03-04 06:59] LABS: BASOPHIL % 0.2 % (0-2); PLATELET COUNT 213 x10^3mcL (130-400); RED CELL DISTRIBUTION WIDTH 13.3 % (11.5-14.5)
[2019-03-04 07:05] LABS: CALCIUM 7.7 mg/dL (8.5-10.1); CARBON DIOXIDE 30.6 mmol/L (21-32); CHLORIDE SERUM 103 mmol/L (98-107); CREATININE SERUM 0.7 mg/dL (0.7-1.3); GFR1 > 60 mL/min; GLUCOSE SERUM 285 mg/dL (74-106); PHOSPHOROUS 4.2 mg/dL (2.5-4.9); POTASSIUM SERUM 3.9 mmol/L (3.5-5.1); SODIUM SERUM 138 mmol/L (136-145)
[2019-03-04 09:14] VITALS: BP 128/78
[2019-03-04 11:23] VITALS: BP 128/78
[2019-03-04] MEDS ORDERED: GLU500 PO (12:05)
[2019-03-04 12:10] VITALS: BP 137/84
== END 2019-03-04 14:33 | disposition home or self-care (01) | DRG 74 ==
LOC: ED 18:22 → MU 20:14
PROVIDERS: Emergency Medicine; ADMIT Internal Medicine
DX: E11.610 Type 2 diabetes mellitus with diabetic neuropathic arthropathy (principal); E44.1 Mild protein-calorie malnutrition; E78.00 Pure hypercholesterolemia, unspecified; E78.5 Hyperlipidemia, unspecified; E83.51 Hypocalcemia; E11.65 Type 2 diabetes mellitus with hyperglycemia; Z89.421 Acquired absence of other right toe(s); Z59.0 Homelessness; Z68.24 Body mass index [BMI] 24.0-24.9, adult; Z23 Encounter for immunization; Z79.899 Other long term (current) drug therapy
CPT/HCPCS: 82962; 90658; G0378; J1815; J1885; J2270; J3370; J7030; J7050; Q0092

== ENCOUNTER 2020-03-28 20:41 | Emergency (ER) | payer MEDICAID, SELFPAY ==
[~2020-03-28] VITALS: Ht 165.1 cm; Wt 68.9 kg
[~2020-03-28 20:41] MED LIST changes: +1ST TIER UNILE1 EAC1 MC; +AUGMENTIN1 TA1 PO; +EASY COMFORT ALCO70% TOP; +ECO81 PO; +GLU500 PO; +GLUCOCARD 01 S1 EACH MC; +HUMULIN R100 U/1 M1 SQ; +LANTUS100 U/ML SC; +LIPI10 PO; +METER-CHECK1 EACH MC; +NASAL MIST126 ML; +NOVI SQ
[2020-03-28 20:42] VITALS: BP 116/75; Ht 165.1 cm; Wt 68.9 kg
== END 2020-03-28 22:17 | disposition left against medical advice (07) ==
LOC: ED 20:41
DX: Z53.21 Procedure and treatment not carried out due to patient leaving prior to being seen by health care provider (principal)